=== PATIENT | female | born 1995 | race American Indian/Alaskan Native ===

== ENCOUNTER 2016-11-22 16:36 | Emergency (ER) | payer SELFPAY ==
[2016-11-22 17:37] VITALS: BP 98/51
== END 2016-11-22 22:55 | disposition left against medical advice (07) ==
LOC: ED 16:36
DX: R51 Headache (principal); M54.9 Dorsalgia, unspecified; Z53.21 Procedure and treatment not carried out due to patient leaving prior to being seen by health care provider

== ENCOUNTER 2017-02-16 04:00 | Emergency (ER) | payer SELFPAY ==
--- NOTE | 2017-02-16 07:28 | Emergency Department Report ---
ED General Adult HPI - General Chief complaint: Head Injury Stated complaint: HEAD BLEEDING Time Seen by Provider: 02/16/17 07:13 Source: patient Mode of arrival: Ambulatory Limitations: No Limitations - History of Present Illness Initial comments: PT states she is here to have her head checked. PT states she was in her garage this morning around 0330 and she bumped her head on a shelf. PT states little stuff on the shelf fell and she knocked a half empty gallon paint can over. PT states the paint can hit her head. PT states she was standing when the items struck her head. PT states she was still standing after the items hit her head. PT states she sat down after she saw that her head was bleeding. pt denies loc, n/v, and blurred vision. pt denies headache now. PT states her TDap vaccine is utd. PT has not taken any medication for her symptoms. PT denies headache now. MD Complaint: head injury -: Sudden Time: 03:30 Location: head Radiation: non-radiation Severity scale (0 -10): 0 Consistency: now resolved Improves with: other (time ) Worsens with: none Associated Symptoms: denies: confusion, diaphoresis, headaches, nausea/vomiting , seizure, syncope Treatments Prior to Arrival: none - Related Data Home Medications Medication Instructions Recorded Confirmed Last Taken No Known Home Medications [No 12/29/15 12/29/15 Unknown Reported Home Medications] Allergies Allergy/AdvReac Type Severity Reaction Status Date / Time No Known Allergies Allergy Unverified 12/29/15 12:39 ED Review of Systems ROS: Stated complaint: HEAD BLEEDING Other details as noted in HPI Comment: All other systems reviewed and negative Eyes: denies: vision change Cardiovascular: denies: chest pain, syncope Gastrointestinal: denies: abdominal pain, nausea, vomiting Genitourinary: other (denies vaginal bleeding) Musculoskeletal: other (denies neck pain ). denies: back pain Skin: as per HPI Neurological: denies: headache, weakness, numbness, paresthesias, abnormal gait , vertigo ED Past Medical Hx - Past Medical History Previous Medical History?: No Additional medical history: vaginal delivery x 3 - Surgical History Past Surgical History?: No - Social History Smoking Status: Current Every Day Smoker Substance Use Type: Alcohol - Medications Home Medications: Home Medications Medication Instructions Recorded Confirmed Last Taken Type No Known Home Medications [No 12/29/15 12/29/15 Unknown History Reported Home Medications] ED Physical Exam - General Limitations: No Limitations General appearance: alert, in no apparent distress - Head Head exam: Present: normocephalic - Expanded Head Exam Expanded Head exam: Present: abrasion (R parietal scalp with small abrasion, no active bleeding. no hematoma, no bony abnormality appreciated. ). Absent: laceration, hematoma, racoon eyes, almazan's sign, general tenderness, tenderness of temporal artery, CSF rhinorrhea, CSF otorrhea - Eye Eye exam: Present: normal appearance, PERRL, EOMI. Absent: conjunctival injection, nystagmus Pupils: Present: normal accommodation - ENT ENT exam: Present: normal exam, normal orophraynx, mucous membranes moist, TM's normal bilaterally, normal external ear exam - Neck Neck exam: Present: normal inspection, full ROM, other (no post midline C-spine tenderness ). Absent: tenderness - Respiratory Respiratory exam: Present: normal lung sounds bilaterally. Absent: respiratory distress, chest wall tenderness, accessory muscle use - Cardiovascular Cardiovascular Exam: Present: regular rate, normal rhythm, normal heart sounds - GI/Abdominal GI/Abdominal exam: Present: soft. Absent: distended, tenderness, guarding, rebound - Extremities Exam Extremities exam: Present: normal inspection, full ROM - Back Exam Back exam: Present: normal inspection, full ROM. Absent: tenderness, CVA tenderness (R), CVA tenderness (L), muscle spasm, paraspinal tenderness, vertebral tenderness - Neurological Exam Neurological exam: Present: alert, oriented X3, CN II-XII intact, normal gait - Expanded Neurological Exam Expanded Patient oriented to: Present: person, place, time Speech: Present: fluid speech Cranial nerves: EOM's Intact: Normal, Tongue Deviation: Normal Motor strength exam: RUE: 5, LUE: 5, RLE: 5, LLE: 5 Best Eye Response ([place]): (4) open spontaneously Best Motor Response ([place]): (6) obeys commands Best Verbal Response ([place]): (5) oriented [place] Total: 15 - Psychiatric Psychiatric exam: Present: normal affect, normal mood, depressed - Skin Skin exam: Present: warm, dry. Absent: intact ED Course Vital Signs 02/16/17 02/16/17 04:00 08:11 Temperature 98.6 F Pulse Rate 85 88 Respiratory 18 16 Rate Blood Pressure 118/68 95/60 [Right] O2 Sat by Pulse 100 99 Oximetry - Reevaluation(s) Reevaluation #1: 02/16/17 07:47 PT has minor scalp abrasion, no neuro deficits on exam. [place] Head CT guidelines do not suggest head CT. PT aware of recommendations. PT verbalizes understanding. PT is aware that her test is positive. PT aware she will need to follow up with OB/ [facility]. PT has no questions at this time. - Pulse Oximetry Interpretation Digit-Finger Initial Pulse Oximetry Readin Actions Taken: none ED Medical Decision Making - Lab Data Lab Results 02/16/17 Range/Units 04:41 HCG, Qual Positive (Negative) - Differential Diagnosis minor scalp injury, Critical Care Time: No Critical care attestation.: If time is entered above; I have spent that time in minutes in the direct care of this critically ill patient, excluding procedure time. ED Disposition Clinical Impression: Positive test Abrasion of scalp Qualifiers: Encounter type: initial encounter Qualified Code(s): S00.01XA - Abrasion of scalp, initial encounter Disposition: DC-01 TO HOME OR SELFCARE Is pt being admited?: No Does the pt Need Aspirin: No Condition: Stable Instructions: (ED), Minor Head Injury (ED), Abrasion (ED) Additional Instructions: OTC Tylenol of any aches or minor pains Take a vitamin daily Refrain from smoking No drinking alcohol follow up with your OB/ [facility] in the next week to establish your care Return to the ED for headache, vomiting, or changes in behavior. Referrals: PRIMARY MD AMADOU [Primary Care Provider] - 3-5 Days MICHAEL GOFF MD [Staff Physician] - 3-5 Days MIKE SILVA MD [Staff Physician] - 3-5 Days [facility] [Outside] - 3-5 Days [facility] [Outside] - 3-5 Days Time of Disposition: 07:52
[2017-02-16 08:12] VITALS: BP 95/60
== END 2017-02-16 08:12 | disposition home or self-care (01) ==
LOC: ED 04:00
DX: O9A.219 Injury, poisoning and certain other consequences of external causes complicating pregnancy, unspecified trimester (principal); O99.330 Smoking (tobacco) complicating pregnancy, unspecified trimester; S00.01XA Abrasion of scalp, initial encounter; Z3A.00 Weeks of gestation of pregnancy not specified; W22.8XXA Striking against or struck by other objects, initial encounter; Y93.9 Activity, unspecified; Y92.9 Unspecified place or not applicable; Y99.9 Unspecified external cause status
CPT/HCPCS: 36415; 84703

== ENCOUNTER 2017-03-24 08:44 | Emergency (ER) | payer SELFPAY ==
[2017-03-24 09:09] VITALS: BP 110/50
[2017-03-24 09:40] LABS: Basophils % (Auto) 0.5 % (0.0-1.8); Eosinophils % (Auto) 1.3 % (0.0-4.3); Hematocrit 34.1 % (30.3-42.9); Mean Corpuscular HGB Conc 32 % (30-34); Mean Corpuscular Hemoglobin 28 pg (28-32); Mean Corpuscular Volume 86 fl (79-97); Platelet Count 321 K/mm3 (140-440); Red Blood Count 3.98 M/mm3 (3.65-5.03); Red Cell Distribution Width 12.5 % (13.2-15.2); White Blood Count 9.9 K/mm3 (4.5-11.0)
[2017-03-24 09:46] LABS: Anion Gap 17 mmol/L; Blood Urea Nitrogen 5 mg/dL (7-17); Calcium 8.1 mg/dL (8.4-10.2); Carbon Dioxide 23 mmol/L (22-30); Chloride 100.6 mmol/L (98-107); Glucose 71 mg/dL (65-100); Potassium 3.5 mmol/L (3.6-5.0); Sodium 137 mmol/L (137-145)
[2017-03-24 09:51] LABS: Bacteria,Urine 2+ /HPF (Negative); Bilirubin,Urine NEG (Negative); Blood,Urine NEG (Negative); Ketones,Urine NEG (Negative); Leukocyte Esterase,Urine LG (Negative); Mucus,Urine 1+ /HPF; Nitrite,Urine NEG (Negative); Urobilinogen,Urine < 2.0 mg/dL (<2.0)
[2017-03-24 09:53] LABS: WBC,Urine > 182.0 /HPF (0.0-6.0)
== END 2017-03-24 11:10 | disposition left against medical advice (07) ==
LOC: ED 08:44
DX: Z53.21 Procedure and treatment not carried out due to patient leaving prior to being seen by health care provider (principal)
CPT/HCPCS: 36415; 80048; 81001; 84702; 85025; 87076; 87086; 87186

== ENCOUNTER 2017-08-07 20:37 | Outpatient (CLI) | payer SELFPAY ==
[2017-08-07 20:57] VITALS: BP 103/59
== END 2017-08-07 22:25 | disposition home or self-care (01) ==
LOC: TRG 20:37
PROVIDERS: ATTEND Obstetrics & Gynecology
DX: O48.0 Post-term pregnancy (principal); Z87.891 Personal history of nicotine dependence; Z3A.40 40 weeks gestation of pregnancy
CPT/HCPCS: 59025

== ENCOUNTER 2017-08-14 13:03 | Outpatient (CLI) | payer SELFPAY ==
--- NOTE | 2017-08-14 15:24 | Ultrasound Report ---
ULTRASOUND BIOPHYSICAL PROFILE: History: well being Technique: Transabdominal ultrasound with Doppler interrogation. 2 - breathing movements 2 - movements 2 - posture and tone 2 - Qualitative amniotic fluid volume 8 - TOTAL SCORE OF POSSIBLE 8 Heart Rate (bpm) 141
--- NOTE | 2017-08-14 15:24 | Ultrasound Report ---
ULTRASOUND OB LIMITED History: KENIA Technique: Transabdominal ultrasound with Doppler interrogation. Gestation: Single Position: Cephalic Amniotic Fluid: Normal KENIA = 15.0 cm Heart Rate: 141 BPM
[2017-08-14 16:28] VITALS: BP 110/55
[2017-08-14] MEDS ORDERED: ZITHROMAX 500 MG in NACL 0.9% 250ML 250 ML IV SCH (17:30)
== END 2017-08-14 18:27 | disposition home or self-care (01) ==
LOC: TRG 13:03 → LD 16:56 → TRG 18:27
PROVIDERS: ATTEND Obstetrics & Gynecology
DX: O48.0 Post-term pregnancy (principal); Z87.891 Personal history of nicotine dependence; Z3A.41 41 weeks gestation of pregnancy
CPT/HCPCS: 59025; 76815; 76819; 96360; 96361; J0456; J7050

== ENCOUNTER 2017-08-15 10:47 | Inpatient (IN) | payer OTHER ==
[2017-08-15] MEDS ORDERED: LACTATED RINGERS 1,000 ML ONE ×2 (11:51→12:16)
[2017-08-15] MEDS ORDERED: ePHEDrine SULFATE IV PRN ×2 (12:21→13:06)
[2017-08-15] MEDS ORDERED: XYLOCAINE 2% INFILTRATI ONE (12:21)
[2017-08-15] MEDS ORDERED: BRETHINE SUB-Q PRN (12:21)
[2017-08-15] MEDS ORDERED: MINERAL OIL PO PRN (12:21)
[2017-08-15] MEDS ORDERED: STADOL IV PRN (12:21)
[2017-08-15] MEDS ORDERED: BRETHINE IVP PRN (12:21)
[2017-08-15] MEDS: LACTATED RINGERS 1,000 ML IV SCH ×3 (12:30→15:28)
[2017-08-15] MEDS ORDERED: NARCAN 2 MG/2 ML ONE (12:32)
--- NOTE | 2017-08-15 12:35 | History and Physical Report ---
History of Present Illness Date of examination: 08/15/17 Date of admission: 08/15/17 10:48 Chief complaint: SIUP at 41 weeks in active labor. History of present illness: Patient is a 22 year old , LMP 10/29/16, EDC 08/05/17 at 41 weeks and 3 days who complains of having contractions since about 6 AM today. She denies any fluid leakage or bleeding. She reports good movement. She had scant care. She has a history of chlamydia and treated with PO antibiotics but patient could not afford the medicine. Yesterday, she was here for NST/BPP. She was given IV zithromax for the chlamydia. Past History Past Medical History: other (anemia, UTI, Vit D def, ) Past Surgical History: no surgical history [employer] History: chlamydia Family/Genetic History: none - Obstetrical History Expected Date of Delivery: 08/05/17 Actual Gestation: 41 Week(s) 3 Day(s) : 4 Para: 3 Number of Living Children: 3 Medications and Allergies Allergies Allergy/AdvReac Type Severity Reaction Status Date / Time No Known Allergies Allergy Verified 08/14/17 13:33 Home Medications Medication Instructions Recorded Confirmed Last Taken Type No Known Home Medications [No 12/29/15 12/29/15 Unknown History Reported Home Medications] Active Meds: Active Medications Butorphanol Tartrate (Stadol) 0.5 mg IV Q2H PRN PRN Reason: Pain, Moderate (4-6) Ephedrine Sulfate (Ephedrine Sulfate) 10 mg IV Q2M PRN PRN Reason: Hypotension Lactated Ringer's (Lactated Ringers) 1,000 mls @ 125 mls/hr IV DIRECT SID Lidocaine (Xylocaine 2%) 20 ml INFILTRATI ONCE ONE Stop: 08/15/17 12:22 Mineral Oil (Mineral Oil) 30 ml PO QHS PRN PRN Reason: Constipation Terbutaline Sulfate (Brethine) 0.25 mg SUB-Q ONCE PRN PRN Reason: Hyperstimulation/Hypertonicity Terbutaline Sulfate (Brethine) 0.25 mg IVP ONCE PRN PRN Reason: Hyperstimulation/Hypertonicity - Vital Signs Vital signs: Vital Signs Temp Pulse Resp Pulse Ox 98.2 F 82 18 99 08/15/17 11:08 08/15/17 11:08 08/15/17 11:08 08/15/17 11:08 Temp Pulse Resp BP Pulse Ox 98.2 F 92 H 16 114/55 89 08/15/17 12:08 08/15/17 12:29 08/15/17 12:08 08/15/17 12:08 08/15/17 12:29 - Physical Exam Cardiovascular: Normal S1, Normal S2 Lungs: Positive: Clear to auscultation Vulva: both: normal Deep Tendon Reflex Grade: Normal +2 - Obstetrical FHR: category 1 Uterine Contraction Monitor Mode: External Cervical Dilatation: 6 Cervical Effacement Percentage: 90 station: -2 Uterine Contraction Pattern: Regular Results All other labs normal. Assessment and Plan - Patient Problems (1) 41 weeks gestation of Current Visit: Yes Status: Acute (2) Active labor Current Visit: Yes Status: Acute Plan to address problem: Admit to labor floor. Routine admitting labs. and toco monitoring. (3) Anemia Current Visit: Yes Status: Acute Qualifiers: Anemia type: iron deficiency (4) History of inadequate care Current Visit: Yes Status: Acute
[2017-08-15 12:56] LABS: Hematocrit 31.9 % (30.3-42.9); Mean Corpuscular HGB Conc 31 % (30-34); Mean Corpuscular Volume 72 fl (79-97); Platelet Count 261 K/mm3 (140-440)
[2017-08-15 13:05] LABS: Mean Corpuscular Hemoglobin 23 pg (28-32)
[2017-08-15] MEDS ORDERED: NARCAN 2 MG/2 ML IV PRN (13:06)
--- NOTE | 2017-08-15 13:08 | Anesthesia Day of Surgery ---
Anesthesia Day of Surgery - Day of Surgery Patient Examined: Yes Patient H&P Reviewed: Yes Patient is NPO: Yes
--- NOTE | 2017-08-15 13:08 | Anesthesia Consultation ---
Anesthesia Consult and Med Hx Date of service: 08/15/17 - Airway Anesthetic Teeth Evaluation: Good ROM Head & Neck: Adequate Mental/Hyoid Distance: Adequate Mallampati Class: Class III Intubation Access Assessment: Possibly Difficult - Pulmonary Exam CTA: Yes - Cardiac Exam Cardiac Exam: RRR - Pre-Operative Health Status ASA Pre-Surgery Classification: ASA2 Proposed Anesthetic Plan: Epidural, Spinal - Pulmonary Hx Smoking: Yes Hx Asthma: No COPD: No Hx Pneumonia: No - Cardiovascular System Hx Hypertension: No - Central Nervous System Hx Seizures: No Hx Psychiatric Problems: No - Endocrine Hx Renal Disease: No Hx End Stage Renal Disease: No Hx Hypothyroidism: No Hx Hyperthyroidism: No - Hematic Hx Anemia: Yes Hx Sickle Cell Disease: No - Other Systems Hx Alcohol Use: No
[2017-08-15] MEDS ORDERED: SUBLIMAZE ONE (13:11)
--- NOTE | 2017-08-15 13:56 | Event Note ---
Date: 08/15/17 S: Pt in left lateral position immediately post epidural anesthesia. Denies any pain. O: FHR baseline 125, miminal variability, no accels, variable decels Ctxs q2-3mins, palpate moderate SVE 8/100/0/BBOW AROM @ 13:39, moderate fluid, particulate meconium A: 22yo G 4 P 3 0 0 3 @ 41 weeks 3 days Category II FHR Pain well controlled P: FSE applied Continue IV fluid bolus, position changes and oxygen administration Anticipate vaginal delivery
[2017-08-15] MEDS ORDERED: fentaNYL-BUPIV 2 MCG/ML-0.125% 200 MCG/100 ML BAG EPIDURAL SCH (14:00)
[2017-08-15] MEDS ORDERED: PITOCin/NS 20 UNIT/1000ML DRIP 20,000 MILLIUNITS/1,000 ML BAG IV ONE (15:21)
[2017-08-15] MEDS ORDERED: MILK OF MAGNESIA PO PRN (15:44)
[2017-08-15] MEDS ORDERED: DULCOLAX PR PRN (15:44)
[2017-08-15] MEDS ORDERED: TYLENOL PO PRN (15:44)
[2017-08-15] MEDS ORDERED: PHENERGAN PO PRN (15:44)
[2017-08-15] MEDS ORDERED: LANSINOH TP PRN (15:44)
[2017-08-15] MEDS ORDERED: ZOFRAN IV PRN (15:44)
[2017-08-15] MEDS ORDERED: TUCKS PAD TP PRN (15:44)
[2017-08-15] MEDS ORDERED: BENADRYL PO PRN (15:44)
[2017-08-15] MEDS ORDERED: NORCO 5/325 PO PRN (15:44)
[2017-08-15] MEDS ORDERED: PHENERGAN PR PRN (15:58)
--- NOTE | 2017-08-15 15:59 | Procedure Note ---
OB Delivery Note - Delivery Date of Delivery: 08/15/17 (15:30) Surgeon: GWEN MURILLO Estimated blood loss: 200cc - Vaginal Delivery presentation: vertex Delivery position: OA Intrapartum events: meconium, mult.variable deceleratio Delivery induction: none Delivery augmentation: rupture of membranes (AROM @ 13:39, particulate meconium) Delivery monitor: external FHT, external uterine, internal FHT Route of delivery: Delivery placenta: spontaneous (at 15:35) Delivery cord: 3 umbilical vessels Episiotomy: none Delivery laceration: none Anesthesia: epidural Delivery comments: of a vigorous term male @ 15:30 with NICU/RESP team in attendance. Baby was bulb-suctioned and placed skin to skin on maternal abdomen. After 3 mins of delayed cord clamping, the umbilical cord was double-clamped by me and cut by the patient. Placenta spontaneously delivered with [place] presenting @ 15: 35. Moderate lochia noted. Fundal massage and IV pitocin bolus initiated. Fundus F/ML/U. Placenta intact; was discarded. Perineum intact. Mom and baby in stable condition. - Infant A at 1 minute: 8 at 5 minutes: 9 Infant Gender: Male (7 lbs 5 oz (3311 g), 19 in)
[2017-08-15] MEDS ORDERED: SODIUM CHLORIDE FLUSH SYRINGE 10 ML IV SCH (16:00)
[2017-08-15] MEDS ORDERED: PITOCin/NS 20 UNIT/1000ML DRIP 20 UNITS/1,000 ML BAG IV SCH (16:00)
[2017-08-15] MEDS: MOTRIN PO SCH ×2 (18:32→23:14)
[2017-08-16 03:20] LABS: Hematocrit 28.8 % (30.3-42.9); Hemoglobin 8.9 gm/dl (10.1-14.3)
[2017-08-16] MEDS: MOTRIN PO SCH ×2 (05:57→12:47)
[2017-08-16] MEDS ORDERED: PRENATAL VITAMIN PO SCH (10:00)
--- NOTE | 2017-08-16 10:01 | Progress Note ---
Assessment and Plan A: PP Day #1 Asymptomatic Anemia P: Follow Routine Orders Infed 100mg IM x 1 dose Ferrous Sulfate 325mg PO BID Depo Provera prior to discharge D/C home in the AM RTO in One Week for Circumcision RTO in Six Weeks for a Exam Subjective - Subjective Date of service: 08/16/17 Patient reports: appetite normal, voiding normally, pain well controlled, flatus , ambulating normally : doing well, bottle feeding Objective - Vital Signs Latest vital signs: Vital Signs Temp Pulse Resp BP BP Pulse Ox 08/16/17 08:44 20 08/16/17 07:26 97.9 F 63 18 101/52 99 08/16/17 00:00 98.1 F 98 H 18 106/54 08/15/17 19:52 98.9 F 82 18 100/47 08/15/17 17:00 98.0 F 80 20 126/72 08/15/17 16:49 69 96/52 08/15/17 16:40 98.2 F 08/15/17 16:34 77 99/55 08/15/17 16:19 72 96/59 08/15/17 16:04 66 108/51 08/15/17 15:47 65 100/49 08/15/17 15:40 97.5 F L 08/15/17 15:28 68 100 08/15/17 15:23 59 L 100 08/15/17 15:19 53 L 115/58 08/15/17 15:18 59 L 100 08/15/17 15:13 58 L 100 08/15/17 15:08 79 99 08/15/17 15:04 56 L 109/63 08/15/17 15:03 67 100 08/15/17 14:58 57 L 100 08/15/17 14:53 61 100 08/15/17 14:50 55 L 107/58 08/15/17 14:48 57 L 100 08/15/17 14:43 61 99 08/15/17 14:38 61 100 08/15/17 14:34 55 L 103/59 08/15/17 14:33 60 100 08/15/17 14:28 56 L 100 08/15/17 14:23 53 L 100 08/15/17 14:21 64 108/57 08/15/17 14:18 72 100 0218 14:13 60 100 0218 14:08 68 100 0218 14:03 63 100/58 100 0218 14:01 63 98/52 0218 13:59 64 96/55 0218 13:58 74 99 18 13:57 59 L 97/56 08/15/17 13:55 60 96/51 02 13:53 59 L 92/54 100 18 13:51 72 92/50 0218 13:49 63 93/51 18 13:48 66 100 18 13:47 65 91/45 0218 13:45 64 99/53 92 18 13:43 63 103/52 100 18 13:41 61 97/54 18 13:39 62 101/58 18 13:38 56 L 100 08/15/17 13:37 59 L 103/57 08/15/17 13:36 69 82 L 0218 13:35 60 96/53 0218 13:33 73 97/52 98 18 13:31 69 102/53 0218 13:29 60 108/60 18 13:28 85 98 0218 13:27 62 101/58 18 13:25 75 93/52 18 13:23 82 95/52 97 18 13:18 79 98 18 13:15 61 111/52 18 13:13 78 97 18 13:08 82 99 18 13:03 85 96 18 13:01 95 H 0 L 18 12:58 71 98 18 12:53 68 98 18 12:48 72 98 18 12:43 68 117/59 99 18 12:38 85 98 18 12:33 92 H 16 99 0218 12:29 92 H 89 08/15/17 12:27 72 100 18 12:22 88 98 18 12:17 82 99 08/15/17 12:08 98.2 F 74 16 114/55 08/15/17 11:48 102 H 99 08/15/17 11:43 84 100 08/15/17 11:38 75 98 08/15/17 11:33 73 99 08/15/17 11:28 77 99 08/15/17 11:23 76 100 08/15/17 11:18 73 99 08/15/17 11:13 71 98 08/15/17 11:09 83 110/66 08/15/17 11:08 98.2 F 82 18 99 Intake and Output 08/15/17 08/16/17 08/16/17 22:59 06:59 14:59 Intake Total 360.417 840 Output Total 850 2 Balance -489.583 838 Intake: IV 360.417 Lactated Ringers 1,000 ml 360.417 @ 125 mls/hr IV DIRECT SID Rx#:[id number] Intake, Free Water 840 Output: Urine 850 2 Indwelling Catheter 850 Void 2 Other: Total, Output Amount 550 2 # Voids Void 2 Estimated Blood Loss 200 - Exam Breasts: Present: normal Cardiovascular: Present: Regular rate Lungs: Present: Clear to auscultation, Normal air movement Abdomen: Present: normal appearance, soft, normal bowel sounds Uterus: Present: normal, firm, fundal height below umbilicus Extremities: Present: normal - Labs Labs: Abnormal lab results 08/15/17 08/16/17 Range/Units 12:27 02:45 Hgb 10.0 L 8.9 L (10.1-14.3) gm/dl Hct 28.8 L (30.3-42.9) % MCV 72 L (79-97) fl MCH 23 L (28-32) pg RDW 17.0 H (13.2-15.2) %
--- NOTE | 2017-08-16 10:03 | Discharge Summary ---
Providers - Providers Date of Admission: 08/15/17 10:48 Date of discharge: 08/17/17 Attending physician: RUFINA SHAFER MD Primary care physician: RUFINA SHAFER MD Hospitalization Reason for admission: induction of labor Delivery: Episiotomy: none Laceration: none Other procedures: none complications: none Discharge diagnosis: IUP at term delivered [place] baby: male Condition at discharge: Good Disposition: DC-01 TO HOME OR SELFCARE Plan - Provider Discharge Summary Activity: routine, no sex for 6 weeks, no heavy lifting 4 weeks, no strenuous exercise Diet: routine Instructions: routine Additional instructions: [] Smoking cessation referral if applicable(refer to patient education folder for contact #) [] Refer to [facility] Booklet Call your doctor immediately for: * Fever > 100.5 * Heavy vaginal bleeding ( >1 pad per hour) * Severe persistent headache * Shortness of breath * Reddened, hot, painful area to leg or breast * Drainage or odor from incision. * Keep incision clean and dry at all times and follow doctor's instructions regarding bathing/showering - Follow up plan Follow up: RUFINA SHAFER MD [Primary Care Provider] - 6 Weeks
[2017-08-16] MEDS ORDERED: FEOSOL PO SCH (11:00)
[2017-08-16] MEDS ORDERED: DEPO-PROVERA (CONTRACEPTION) IM NR (11:00)
[2017-08-16] MEDS ORDERED: INFED IM NR (11:30)
[2017-08-17] MEDS: MOTRIN PO SCH ×2 (00:07→06:05)
[2017-08-17] MEDS ORDERED: DEPO-PROVERA (CONTRACEPTION) IM ONE (01:16)
[2017-08-17 13:00] VITALS: BP 103/40
== END 2017-08-17 13:40 | disposition home or self-care (01) | DRG 775 ==
LOC: TRG 10:47 → LD 10:48 → TRG 10:48 → OB 17:13
PROVIDERS: ADMIT Obstetrics & Gynecology; ATTEND Obstetrics & Gynecology
PROC: 10E0XZZ Delivery of Products of Conception, External Approach (ICD-10-PCS; principal; 2017-08-15)
PROC: 10907ZC Drainage of Amniotic Fluid, Therapeutic from Products of Conception, Via Natural or Artificial Opening (ICD-10-PCS; 2017-08-15)
PROC: 3E0R3BZ Introduction of Anesthetic Agent into Spinal Canal, Percutaneous Approach (ICD-10-PCS; 2017-08-15)
PROC: 00HU33Z Insertion of Infusion Device into Spinal Canal, Percutaneous Approach (ICD-10-PCS; 2017-08-15)
DX: O76 Abnormality in fetal heart rate and rhythm complicating labor and delivery (principal); O77.0 Labor and delivery complicated by meconium in amniotic fluid; O99.02 Anemia complicating childbirth; O99.334 Smoking (tobacco) complicating childbirth; D64.9 Anemia, unspecified; F17.210 Nicotine dependence, cigarettes, uncomplicated; Z3A.41 41 weeks gestation of pregnancy; Z37.0 Single live birth
CPT/HCPCS: 36415; 85014; 85018; 85027; 86592; 86850; 86900; 86901; 90471; J0595; J1050; J1750; J2310; J2590; J3010; J7120